=== PATIENT | male | born 1985 | race Caucasian/White ===

== ENCOUNTER 2019-07-21 14:01 | Emergency (ER) | payer BC, SELFPAY ==
--- NOTE | 2019-07-21 14:15 | ED.GENADULT ---
HPI - General Adult General Chief complaint: Upper Respiratory Infection Stated complaint: cough/sore throat/fever Time Seen by Provider: 07/21/19 14:16 Source: patient Mode of arrival: ambulatory Limitations: no limitations History of Present Illness HPI narrative: 34-year-old male patient presents to the [facility] with complaints of cold symptoms that started yesterday. Patient states that after he got home from work yesterday he started having chills body aches and started spiking a fever. Patient states that today his throat is hurting continues to have body aches chills and a fever as high as 103. Patient states that his kids have had strep recently. Patient denies getting a flu shot this year. Patient states that he did take 250 mg of Tylenol about an hour and a half ago. Related Data Allergies Allergy/AdvReac Type Severity Reaction Status Date / Time No Known Allergies Allergy Verified 07/21/19 14:05 Review of Systems Review of Systems: Narrative: CONSTITUTIONAL: Positive fever, chills, body aches and sweats. EYES: Denies visual changes, redness, or discharge. ENT: Denies rhinorrhea, congestion, positive sore throat, denies otalgia. CARDIOVASCULAR: Denies chest pain, palpitations, or edema. RESPIRATORY: Denies cough or dyspnea. GASTROINTESTINAL: Denies abdominal pain, nausea, vomiting, or diarrhea. GENITOURINARY: Denies dysuria or hematuria. SKIN: Denies rash or itching. MUSCULOSKELETAL: Denies back pain, joint pain, or myalgia. NEUROLOGIC: Positive headache, denies numbness, or weakness. PSYCHIATRIC: Denies anxiety or depression. PMFSH Comments At the time of my signature I agree with nursing past medical history, surgical, social, and family history. There is no relevant family history pertinent to the presenting complaint. Exam Narrative: Exam Narrative: GENERAL: ill-appearing, well-nourished, and in no acute distress. HEAD: Normocephalic, atraumatic. EYES: PERRLA and EOMI. ENT: Nares clear, no rhinorrhea or epistaxis. Mucous membranes moist. Posterior pharynx with 3+ tonsil enlargement and white exudates noted on bilateral sides with erythema. There is fluid noted behind bilateral TMs but no erythema no foreign bodies to the canal. NECK: Supple. Bilateral cervical lymphadenopathy CHEST: Clear to auscultation. No respiratory distress. Patient able talk in clear complete sentences. HEART: Regular rate and rhythm. No murmur heard. Normal peripheral pulses. ABDOMEN: Soft, nontender, nondistended, normal active bowel sounds. EXTREMITIES: Normal range of motion. No edema. SKIN: Warm, dry, no rash. NEURO: No focal deficits. Alert and oriented x3. Course Vital Signs Vital signs: Vital Signs Temperature 39.7 C H 07/21/19 14:17 Pulse Rate 112 H 07/21/19 14:17 Respiratory Rate 07/21/19 14:17 Blood Pressure 129/60 07/21/19 14:17 Pulse Oximetry 98 07/21/19 14:17 Temperature 39.7 C H 07/21/19 14:17 Pulse Rate 112 H 07/21/19 14:17 Respiratory Rate 07/21/19 14:17 Blood Pressure 129/60 07/21/19 14:17 Pulse Oximetry 98 07/21/19 14:17 Vital signs reviewed. Medical Decision Making Differential Diagnosis Differential Diagnosis: Differential diagnosis: Allergic rhinitis, chronic sinusitis, tonsillitis, acute sinusitis, infectious mononucleosis, seasonal influenza, pertussis, diphtheria, meningococcal disease, viral syndrome, viral bronchitis, RSV. Notify patient that he is negative for influenza today but is positive for strep. Plan of care for patient is discharged home with oral antibiotics for the strep we will take him off of work for tomorrow. Discussed with patient he needs to be taking at least 500-6 50 of Tylenol for the fever and pain and may alternate this with some ibuprofen or Motrin. Discussed with patient he can also use warm salt water gargles hot tea and honey and should start feeling better in the next 24 hours with antibiotics. Vital Signs Vital Signs: Vital S
[2019-07-21 14:17] VITALS: BP 129/60; PULSE 112; RESP 20; TEMP 39.7; O2SAT 98
== END 2019-07-21 14:31 | disposition home or self-care (01) ==
PROVIDERS: Emergency Provider Nurse Practitioner Family
DX: J02.0 Streptococcal pharyngitis (principal)
CPT/HCPCS: 87804; 87880; 99213; G0463